=== PATIENT | male | born 1995 | race Caucasian/White ===

== ENCOUNTER 2016-11-07 00:49 | Emergency (ER) | payer BC ==
[~2016-11-07] VITALS: Ht 172.7 cm; Wt 72.2 kg
[2016-11-07 00:55] VITALS: TEMP 36.5; Ht 172.7 cm; Wt 72.2 kg
[2016-11-07] MEDS ORDERED: AMOXICILLIN 250 MG CAP PO STA (01:18)
[2016-11-07] MEDS ORDERED: TRAM-10 PO (01:21)
[2016-11-07] MEDS ORDERED: AMOX500C3 PO (01:21)
[2016-11-07] MEDS ORDERED: TRAMADOL HCL 50 MG HOME PACK PO ONE (01:30)
[2016-11-07 01:34] VITALS: BP 140/94; PULSE 77; O2SAT 100
--- NOTE | 2016-11-07 01:45 | EMERGENCY ROOM VISIT NOTE ---
History First contact with patient: 00:54 Chief Complaint: DENTAL PAIN Stated Complaint: EXTREME TOOTH PAIN Nursing Triage Summary: c/o lower back left sided dental pain x 2 days. pt was unable to get ahold of dentist. pt taking motrin and advil liquid gels without relief History of Present Illness The patient is a 21 year old male who presents to the Emergency Room with complaints of left lower dental pain for the past few days. Patient has a dentist.He Called his dentist and he did not call him back. He tried Motrin with no relief of symptoms. Patient denies chest pain, dyspnea, fever, chills, facial swelling, sore throat, dysphagia, cough, congestion. Review of Systems See HPI for pertinent positives & negatives. A total of 10 systems reviewed and were otherwise negative. Past Medical/Surgical History none Social History Smoking Status: Current Some Day Smoker Smokeless Tobacco Use: No Alcohol Use: occasionally Drug Use: none Occupation Status: employed Current/Historical Medications Scheduled Amoxicillin (Amoxil), 500 MG PO TID Scheduled PRN Tramadol (Ultram), 1-2 TAB PO Q4H PRN for Pain Allergies Coded Allergies: No Known Allergies (Unverified , 11/07/16) Physical Exam Vital Signs Date Time Temp Pulse Resp B/P (MAP) Pulse Ox O2 Delivery O2 Flow Rate FiO2 11/07/16 01:34 77 20 140/94 100 11/07/16 00:55 36.5 77 20 140/94 100 Room Air Pain Rating (0-10): 8.0 Physical Exam VITALS: Vitals are noted on the nurse's note and reviewed by myself. Vital signs stable. GENERAL: Pleasant male, in no acute distress, nondiaphoretic, well-developed well-nourished. SKIN: The skin was without rashes, erythema, edema, or bruising. There is no tenting of the skin. Capillary reflex less than 2 seconds. HEAD: Normocephalic atraumatic. EARS: External auditory canals clear, tympanic membranes pearly briggs without erythema or effusion bilaterally. EYES: Pupils equal round and reactive to light and accommodation. Conjunctivae without injection, sclerae without icterus. Extraocular movements intact. NOSE: Patent, turbinates without inflammation or discharge. No sinus tenderness. MOUTH: Mucous membranes moist. Pharynx without erythema or exudate. Uvula midline. Airway patent. Tongue does not deviate. Dental exam: Left lower gumline slightly erythematous with second molar with dental decay concerning for infection without palpable abscess. No signs of Db angina. NECK: Supple without nuchal rigidity. No lymphadenopathy. No thyromegaly. Cervical spine is nontender. No JVD. HEART: Regular rate and rhythm without murmurs gallops or rubs. LUNGS: Clear to auscultation bilaterally without wheezes, rales or rhonchi. No dullness to percussion. No retractions or accessory muscle use. MUSCULOSKELETAL: No muscle atrophy, erythema, or edema noted. NEURO: Patient was alert and oriented to person place and time. Normal sensation to light and sharp touch. No focal neurological deficits. Medical Decision & Procedures Medications Administered Medications (Trade) Dose Ordered Sig/Neo Route Start Time Stop Time Status Last Admin Dose Admin Amoxicillin (Amoxil Cap) 500 mg NOW STAT PO 11/07/16 01:18 11/07/16 01:19 DC 11/07/16 01:29 500 MG Tramadol HCl (Ultram Home Pack) 1 homepack UD ONCE PO 11/07/16 01:30 11/07/16 01:31 DC 11/07/16 01:29 1 HOMEPACK ED Course Prior records reviewed and summarized as above. Triage Nursing notes reviewed. The patient's history was concerning for dental pain Differential diagnosis: Etiologies such as cellulitis, abscess, Db angina, gingivitis, as well as others were entertained.. Physical examination: The physical examination was consistent with dental pain from dental decay ER treatment provided: Amoxicillin, Ultram On reassessment the patient felt better. Diagnostics interpreted by me: Deferred This appears to be and the pain from dental decay. Patient will abscess. airway was patent. no signs of db angina. he was counseled on proper dental hygiene and verbalized understanding of this. he is advised to follow- up with dentistry in a few days or here in the er sooner for fevers, facial swelling, dysphagia, worsening signs or symptoms or as needed.. By the evaluation outlined above emergent etiologies such as abscess, Db angina, as well as others were deemed relatively unlikely. The pt informed about the findings as listed above. All questions were answered and pleased with the treatment. Return instructions were outlined and the patient was discharged in stable condition. Outpatient prescription management: Ultram, amoxicillin Referral: The patient was referred back to dentistry for follow-up in 2 to 3 days for a recheck of the current condition. Medical Decision As above [place] Drug Monitoring Program Search Results: patient reviewed within database, no issues identified Impression Primary Impression: Dental caries Additional Impression: Tooth pain with chewing Departure Information Dispostion Home / Self-Care Condition GOOD Prescriptions Tramadol (Ultram) 50 Mg Tab 1-2 TAB PO Q4H Y for Pain, #14 TAB For Initial Treatment Prov: Amanda German PA-C 11/07/16 Amoxicillin (AMOXIL) 500 Mg Cap 500 MG PO TID for 10 Days, #30 CAP Prov: Amanda German PA-C 11/07/16 Referrals Azam Kolb M.D. (PCP) Forms HOME CARE DOCUMENTATION FORM, IMPORTANT VISIT INFORMATION Patient Instructions [facility], ED [facility] Additional Instructions Amoxicillin 500mg: Take one pill 3 times daily for 10 days for your infection. All antibiotics can cause diarrhea. If this occurs and you feel worse or it does not resolve in 1-2 days follow up with your doctor or return to the Emergency Department as this could be signs of serious underlying problems. Any medication can cause an allergic reaction, stop the pills immediately and return to the ER for rash, hives, breathing difficulties, or swelling. Ultram 50mg: Take 1-2 pills every four hours for breakthrough pain. Avoid alcohol, operating machinery or dangerous equipment, working on ladders or roofs , DRIVING, or situations where being under the influence may be dangerous. It is recommended to use an [id number]-[id number]-[id number] stool softener such as Colace, 100mg twice daily while taking this medication to avoid constipation. Ibuprofen(Motrin, Advil) may be used for fever or pain. Use 600mg every six hours as needed. Take with food. Avoid using more than 2400mg in a 24 hour period. Do not use 2400mg per day for more than three consecutive days without physician direction. Prolonged inappropriate use can lead to stomach upset or ulcers. This medication can be taken if you need to drive, work, or perform activities which may be dangerous when taking narcotic pain medication. (AND/OR) Acetaminophen(Tylenol) may be used for fever or pain. Use 1000mg every six hours as needed. Avoid using more than 3000mg in a 24 hour period. This medication can be taken if you need to drive, work, or perform activities which may be dangerous when taking narcotic pain medication. [place] teeth twice a day, floss daily and do warm saltwater gargles 3 times a day. See a dentist as soon as possible for definitive care for your dental problem. Return to ER sooner for facial swelling, fever, redness, worsening signs or symptoms or as needed. Problem Qualifiers
== END 2016-11-07 01:35 | disposition home or self-care (01) ==
LOC: C.EDB 00:50 → C.EDA 01:35
DX: K02.9 Dental caries, unspecified (principal); K08.89 Other specified disorders of teeth and supporting structures; F17.200 Nicotine dependence, unspecified, uncomplicated